=== PATIENT | female | born 1960 | race Two or more races ===

== ENCOUNTER 2019-03-13 10:20 | Emergency (ER) | payer MEDICAID, MEDICARE ==
[~2019-03-13] VITALS: Ht 154.9 cm; Wt 97.5 kg
--- NOTE | 2019-03-13 12:39 | NUR ---
arely loera at bedside for eval.
[2019-03-13] MEDS ORDERED: HYDROCODONE/APAP 5/325MG 1 EACH TABLET PO ONE (13:00)
--- NOTE | 2019-03-13 13:00 | NUR ---
RADIOLOGY AT BEDSIDE FOR XRAYS.
[2019-03-13] MEDS ORDERED: HYDROCODONE/APAP 5/325MG 1 EACH TABLET ONE (13:02)
--- NOTE | 2019-03-13 15:19 | NUR ---
Patient discharged to home in stable condition. Written and verbal after care instructions given. Patient verbalizes understanding of instruction.
[2019-03-13 15:20] VITALS: BP 132/66
== END 2019-03-13 15:21 | disposition home or self-care (01) ==
LOC: ER 10:28
DX: S70.12XA Contusion of left thigh, initial encounter (principal); M25.552 Pain in left hip; M25.562 Pain in left knee; M79.601 Pain in right arm; E78.5 Hyperlipidemia, unspecified; I10 Essential (primary) hypertension; E78.00 Pure hypercholesterolemia, unspecified; W18.39XA Other fall on same level, initial encounter; Y93.89 Activity, other specified; Y92.89 Other specified places as the place of occurrence of the external cause; Y99.8 Other external cause status
CPT/HCPCS: 73060-TC; 73502; 73564-TC; 82962-TC